=== PATIENT | male | born 1955 | race Asian ===

== ENCOUNTER 2023-10-01 05:11 | Day surgery (SDC) | payer BC ==
[2023-09-28 17:08] VITALS: BMI 23.3
[2023-10-01] MEDS ORDERED: PROPOFOL 20 ML ONE (12:32)
[2023-10-01] MEDS ORDERED: MIDAZOLAM HCL 2 MG/2 ML SINGLE DOSE VIAL ONE (12:44)
[2023-10-01] MEDS ORDERED: LIDOCAINE 1%/EPI 1:100000 (20 ML MULTI DOSE VIAL) ONE (12:56)
[2023-10-01] MEDS: LIDOCAINE 1%/EPI 1:100000 (20 ML MULTI DOSE VIAL) IJ ONE (13:08)
[2023-10-01 17:42] VITALS: RESP 20; TEMP 97.1
[2023-10-01 17:44] VITALS: BP 125/78; PULSE 60
== END 2023-10-01 14:59 | disposition home or self-care (01) ==
LOC: JASU-SURG 05:11
PROVIDERS: ATTEND Surgery
PROC: 0JB60ZZ Excision of Chest Subcutaneous Tissue and Fascia, Open Approach (ICD-10-PCS; principal; 2023-10-01 10:30)
DX: L72.3 Sebaceous cyst (principal)
CPT/HCPCS: 82962; 88304-TC; 94760

== ENCOUNTER 2023-11-01 13:30 | Emergency (ER) | payer OTHER, BC ==
[2023-11-01 13:42] VITALS: BP 150/81; PULSE 70; RESP 18; TEMP 98.5; BMI 23.4
[2023-11-01] MEDS ORDERED: IBUPROFEN 600 MG TABLET (FP) PO ONE (15:33)
[2023-11-01] MEDS ORDERED: ACETAMINOPHEN 500 MG TABLET (FP) ONE (15:33)
[2023-11-01] MEDS: IBUPROFEN 600 MG TABLET (FP) PO ONE (15:40)
[2023-11-01] MEDS: ACETAMINOPHEN 500 MG TABLET (FP) PO ONE (15:40)
== END 2023-11-01 15:54 | disposition home or self-care (01) ==
LOC: JERFT 13:30
DX: M25.552 Pain in left hip (principal); V49.40XA Driver injured in collision with unspecified motor vehicles in traffic accident, initial encounter
CPT/HCPCS: 73502-TC-LT-FY; 99283-25